=== PATIENT | male | born 1955 | race Caucasian/White ===

== ENCOUNTER → 2017-02-02 | Outpatient (CLI) | payer BC ==
--- NOTE | 2017-02-02 19:45 | MR ---
EXAMINATION TYPE: MR lumbar spine wo con DATE OF EXAM: 02/02/2017 7:37 PM COMPARISON: NONE HISTORY: low back pain also radiating down right leg Multiplanar, MultiSpin echo imaging of the lumbar spine was performed. L1-L2: Normal disc appearance without desiccation. No herniation, protrusion or disc bulging. No ca nal stenosis is present. Foramina are patent bilaterally. L2-L3: Mild Disc desiccation is noted. No herniation, protrusion or disc bulging. No canal stenosis is present. Foramina are patent bilaterally. L3-L4: Mild Disc desiccation is noted. No herniation, protrusion or disc bulging. No canal stenosis is present. Foramina are patent bilaterally. L4-L5: Severe disc desiccation. Degenerative endplate marrow change. Extruded disc herniation paracen trally and to the right measuring 2 cm in craniocaudal dimension. There is right foraminal encroachme nt and right lateral recess stenosis. There is edema of the exiting nerve root. No evidence for centr al stenosis. L5-S1: Severe disc desiccation noted. Mild circumferential disc bulge. No herniation protrusion or ce ntral stenosis. Degenerative endplate marrow change. Lumbar segments are intact. No paraspinal masses are identified. Conus medullaris has a normal appe arance. L1 vertebral body hemangioma small in size. Simple cyst right kidney. IMPRESSION: 1. Extruded disc herniation at L4-5 paracentral and to the right filling the right lateral recess and resulting in right foraminal encroachment with edema of the exiting nerve root.
== END | disposition home or self-care (01) ==
LOC: RADMRIMAIN 18:27
PROVIDERS: ATTEND Family Medicine
DX: M51.16 Intervertebral disc disorders with radiculopathy, lumbar region (principal); R60.0 Localized edema
CPT/HCPCS: 72148

== ENCOUNTER → 2018-03-29 | Outpatient (CLI) | payer BC ==
--- NOTE | 2018-03-29 11:31 | XR ---
EXAMINATION TYPE: XR chest 2V DATE OF EXAM: 03/29/2018 COMPARISON: NONE HISTORY: Annual physical exam TECHNIQUE: Frontal and lateral views of the chest are obtained. FINDINGS: There is no focal air space opacity, pleural effusion, or pneumothorax seen. The cardiac silhouette size is within normal limits. The osseous structures are intact. IMPRESSION: No acute cardiopulmonary process.
== END | disposition home or self-care (01) ==
LOC: RADXRYALE 10:55
PROVIDERS: ATTEND Family Medicine
DX: Z77.090 Contact with and (suspected) exposure to asbestos (principal)
CPT/HCPCS: 71046

== ENCOUNTER 2019-04-08 08:57 | Inpatient (IN) | payer BC ==
[2019-04-08] MEDS ORDERED: IPRATROPIUM-ALBUTEROL 3 ML NEB INHALATION STA ×3 (10:00→14:12)
[2019-04-08] MEDS ORDERED: SODIUM CHLORIDE 0.9% 1,000 ML IV STA (10:00)
[2019-04-08 10:16] LABS: Basophils # (A) 0.1 k/uL (0-0.2); Basophils % (A) 2 %; Eosinophils # (A) 0.8 k/uL (0-0.7); Eosinophils % (A) 10 %; HCT 46.2 % (39.0-53.0); HGB 15.2 gm/dL (13.0-17.5); Lymphocytes % (A) 13 %; MCH 30.8 pg (25.0-35.0); MCV 93.5 fL (80.0-100.0); Mean Platelet Volume 7.8; Monocytes # (A) 0.4 k/uL (0-1.0); Monocytes % (A) 4 %; Neutrophils # (A) 5.5 k/uL (1.3-7.7); Neutrophils % (A) 70 %; Platelet Count 246 k/uL (150-450); RBC 4.95 m/uL (4.30-5.90); RDW 12.4 % (11.5-15.5); WBC 7.8 k/uL (3.8-10.6)
[2019-04-08 10:23] LABS: ALT 20 U/L (4-49); AST 29 U/L (17-59); African American GFR (CKD) >90 (>60 ml/min/1.73 sqM); Albumin 4.3 g/dL (3.5-5.0); Alkaline Phosphatase 126 U/L (38-126); Anion Gap 9 mmol/L; Blood Urea Nitrogen 14 mg/dL (9-20); Calcium 9.5 mg/dL (8.4-10.2); Carbon Dioxide 24 mmol/L (22-30); Chloride 108 mmol/L (98-107); Creatine Kinase 58 U/L (55-170); Glucose 111 mg/dL (74-99); Magnesium 2.2 mg/dL (1.6-2.3); Non-African American GFR(CKD) >90 (>60 ml/min/1.73 sqM); Potassium 4.3 mmol/L (3.5-5.1); Sodium 141 mmol/L (137-145); Total Bilirubin 0.6 mg/dL (0.2-1.3); Total Protein 7.7 g/dL (6.3-8.2)
[2019-04-08 10:31] LABS: INR 0.9 (<1.2); Partial Thromboplastin Time 25.7 sec (22.0-30.0); Prothrombin Time 9.7 sec (9.0-12.0)
--- NOTE | 2019-04-08 10:34 | ED ---
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 He later got amoxicillin and got better he states he does have problems when he gets prednisone he develops range. He has second round of antibiotics and steroid shot which did not cause him any problem the antibiotics ended 6 days ago now the patient complains of shortness of breath again cough of yellow-green phlegm exertional dyspnea and no relief from his home inhaler. This started last evening especially getting bad. No overt chest pain no palpitations no nausea vomiting diarrhea no earache sore throat runny nose reported at this time. 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 MD Complaint: shortness of breath - Related Data Home Medications Medication Instructions Recorded Confirmed No Known Home Medications 04/25/14 04/27/14 Allergies Allergy/AdvReac Type Severity Reaction Status Date / Time No Known Allergies Allergy Verified 04/08/19 09:11 Review of Systems ROS Statement: Those systems with pertinent positive or pertinent negative responses have been documented in the HPI. ROS Other: All systems not noted in ROS Statement are negative. Past Medical History Past Medical History: No Reported History History of Any Multi-Drug Resistant Organisms: None Reported Additional Past Surgical History / Comment(s): vascetomy Past Psychological History: No Psychological Hx Reported Smoking Status: Never smoker Past Alcohol Use History: Rare Past Drug Use History: None Reported General Exam - General Exam Comments Initial Comments: This is a well-developed well-nourished awake alert oriented times 3 male. The patient did have a pulse ox of about 93-94 and room air went up to 97 on 2 L of oxygen. General appearance: anxious Head exam: Present: atraumatic, normocephalic, normal inspection Eye exam: Present: normal appearance, PERRL, EOMI. Absent: scleral icterus, conjunctival injection, periorbital swelling ENT exam: Present: normal exam, mucous membranes moist Neck exam: Present: normal inspection, full ROM, other (No stridor JVD or bruits). Absent: tenderness, meningismus, lymphadenopathy Respiratory exam: Present: wheezes, accessory muscle use, decreased breath sounds, other (She is wheezing some accessory muscle usage.). Absent: respiratory distress, rales, rhonchi, stridor Cardiovascular Exam: Present: regular rate, normal rhythm, normal heart sounds. Absent: systolic murmur, diastolic murmur, rubs, gallop, clicks GI/Abdominal exam: Present: soft, normal bowel sounds. Absent: distended, tenderness, guarding, rebound, rigid Extremities exam: Present: normal inspection, full ROM, normal capillary refill. Absent: tenderness, pedal edema, joint swelling, calf tenderness Back exam: Present: normal inspection Neurological exam: Present: alert, oriented X3, CN II-XII intact Psychiatric exam: Present: normal affect, normal mood Skin exam: Present: warm, dry, intact, normal color. Absent: rash Course Vital Signs 04/08/19 04/08/19 04/08/19 09:06 09:32 10:00 Temperature 98.2 F Pulse Rate 70 71 64 Respiratory 18 Rate Blood Pressure 142/94 129/88 O2 Sat by Pulse 96 93 L 97 Oximetry 04/08/19 04/08/19 04/08/19 10:10 10:17 10:18 Temperature Pulse Rate 65 65 66 Respiratory 18 Rate Blood Pressure 131/91 O2 Sat by Pulse 98 Oximetry 04/08/19 04/08/19 04/08/19 10:30 11:00 11:30 Temperature Pulse Rate 63 62 62 Respiratory Rate Blood Pressure 131/91 121/81 134/95 O2 Sat by Pulse 97 96 Oximetry 04/08/19 04/08/19 04/08/19 12:27 12:39 13:31 Temperature Pulse Rate 61 72 Respiratory 18 Rate Blood Pressure O2 Sat by Pulse Oximetry - Reevaluation(s) Reevaluation #1: 04/08/19 11:45 Patient states he is feeling improved at this time he does still have diffuse wheezing however. He will be getting a CT angiogram he does have elevated d-dimer. Reevaluation #2: 04/08/19 14:10 And continues to have diffuse wheezing and shortness of breath in spite of intensive therapy. Patient will be admitted CAT scan shows no evidence of PE however is evidence of a left upper lobe developing infiltrate. Medical Decision Making - Lab Data Result diagrams: 04/08/19 09:50 04/08/19 09:50 Lab Results 04/08/19 04/08/19 04/08/19 Range/Units 09:38 09:50 09:50 WBC 7.8 (3.8-10.6) k/uL RBC 4.95 (4.30-5.90) m/uL Hgb 15.2 (13.0-17.5) gm/dL Hct 46.2 (39.0-53.0) % MCV 93.5 (80.0-100.0) fL MCH 30.8 (25.0-35.0) pg MCHC 33.0 (31.0-37.0) g/dL RDW 12.4 (11.5-15.5) % Plt Count 246 (150-450) k/uL Neutrophils % 70 % Lymphocytes % 13 % Monocytes % 4 % Eosinophils % 10 % Basophils % 2 % Neutrophils # 5.5 (1.3-7.7) k/uL Lymphocytes # 1.0 (1.0-4.8) k/uL Monocytes # 0.4 (0-1.0) k/uL Eosinophils # 0.8 H (0-0.7) k/uL Basophils # 0.1 (0-0.2) k/uL PT (9.0-12.0) sec INR (<1.2) APTT (22.0-30.0) sec D-Dimer (<0.60) mg/L FEU Sodium 141 (137-145) mmol/L Potassium 4.3 (3.5-5.1) mmol/L Chloride 108 H (98-107) mmol/L Carbon Dioxide 24 (22-30) mmol/L Anion Gap 9 mmol/L BUN 14 (9-20) mg/dL Creatinine 0.69 (0.66-1.25) mg/dL Est GFR (CKD-EPI)AfAm >90 (>60 ml/min/1.73 sqM) Est GFR (CKD-EPI)NonAf >90 (>60 ml/min/1.73 sqM) Glucose 111 H (74-99) mg/dL Plasma Lactic Acid Albert 1.6 (0.7-2.0) mmol/L Calcium 9.5 (8.4-10.2) mg/dL Magnesium 2.2 (1.6-2.3) mg/dL Total Bilirubin 0.6 (0.2-1.3) mg/dL AST 29 (17-59) U/L ALT 20 (4-49) U/L Alkaline Phosphatase 126 (38-126) U/L Creatine Kinase 58 (55-170) U/L Troponin I (0.000-0.034) ng/mL NT-Pro-B Natriuret Pep pg/mL Total Protein 7.7 (6.3-8.2) g/dL Albumin 4.3 (3.5-5.0) g/dL 04/08/19 04/08/19 04/08/19 Range/Units 09:50 09:50 09:50 WBC (3.8-10.6) k/uL RBC (4.30-5.90) m/uL Hgb (13.0-17.5) gm/dL Hct (39.0-53.0) % MCV (80.0-100.0) fL MCH (25.0-35.0) pg MCHC (31.0-37.0) g/dL RDW (11.5-15.5) % Plt Count (150-450) k/uL Neutrophils % % Lymphocytes % % Monocytes % % Eosinophils % % Basophils % % Neutrophils # (1.3-7.7) k/uL Lymphocytes # (1.0-4.8) k/uL Monocytes # (0-1.0) k/uL Eosinophils # (0-0.7) k/uL Basophils # (0-0.2) k/uL PT 9.7 (9.0-12.0) sec INR 0.9 (<1.2) APTT 25.7 (22.0-30.0) sec D-Dimer 0.61 H (<0.60) mg/L FEU Sodium (137-145) mmol/L Potassium (3.5-5.1) mmol/L Chloride (98-107) mmol/L Carbon Dioxide (22-30) mmol/L Anion Gap mmol/L BUN (9-20) mg/dL Creatinine (0.66-1.25) mg/dL Est GFR (CKD-EPI)AfAm (>60 ml/min/1.73 sqM) Est GFR (CKD-EPI)NonAf (>60 ml/min/1.73 sqM) Glucose (74-99) mg/dL Plasma Lactic Acid Albert (0.7-2.0) mmol/L Calcium (8.4-10.2) mg/dL Magnesium (1.6-2.3) mg/dL Total Bilirubin (0.2-1.3) mg/dL AST (17-59) U/L ALT (4-49) U/L Alkaline Phosphatase (38-126) U/L Creatine Kinase (55-170) U/L Troponin I <0.012 (0.000-0.034) ng/mL NT-Pro-B Natriuret Pep 46 pg/mL Total Protein (6.3-8.2) g/dL Albumin (3.5-5.0) g/dL - EKG Data -: EKG Interpreted by Me EKG shows normal: sinus rhythm EKG Comments: Sinus rhythm a 62. Interval 166 QRS duration 90 QT since QTC of 14/[address]-T wave changes - Radiology Data Radiology results: report reviewed (Imaging reviewed evidence of developing left upper lobe infiltrate no PE seen.), image reviewed Critical Care Time Critical Care Time: Yes Critical Care Time: 31 minutes of critical care time which includes initial presentation with history physical labs x-rays multiple reevaluation the patient to responsive therapy discuss with the patient family regarding findings discussed with Dr. Alexis admission orders and documentation the above. Disposition Clinical Impression: Acute exacerbation of chronic obstructive pulmonary disease, Acute respiratory distress syndrome in adult, Left upper lobe pneumonia Disposition: ADMITTED IP TO THIS HOSP Condition: Fair Referrals: Frederick Crenshaw DO [Primary Care Provider] - 1-2 days
--- NOTE | 2019-04-08 10:45 | XR ---
EXAMINATION TYPE: XR chest 2V DATE OF EXAM: 04/08/2019 HISTORY: difficulty breathing. REFERENCE: Previous study dated 03/29/2018. FINDINGS: Lung volumes are prominent. The lungs are clear. Pleural spaces are clear. The heart is not enlarged. IMPRESSION: NO ACTIVE INTRATHORACIC DISEASE.
[2019-04-08 10:56] LABS: D-Dimer 0.61 mg/L FEU (<0.60)
--- NOTE | 2019-04-08 12:20 | CT ---
EXAMINATION TYPE: CT angio chest DATE OF EXAM: 04/08/2019 12:02 PM COMPARISON: None. HISTORY: Elevated d-dimer, exertional dyspnea. CT DLP: 430.1 mGycm Automated exposure control for dose reduction was used. CONTRAST: CTA scan of the thorax is performed with IV Contrast, patient injected with 100 mL of Isovue 370, pul monary embolism protocol. . FINDINGS:There is minimal dependent atelectasis at the right lung base. There is some minimal inflamm atory change in the left upper lobe. There is no significant axillary adenopathy. There is some adenopathy in the aortopulmonary window. T he largest measures 1.5 cm. There is no evidence of pulmonary embolus. The aorta is normal in caliber without evidence of dissection. There is no pleural or pericardial fluid. The heart is not enlarged. Visualized upper abdomen is unremarkable. There is mild hypertrophic spondylosis within the spine. IMPRESSION: 1. THIS EXAMINATION IS NEGATIVE FOR EMBOLUS. 2. PATCHY AIRSPACE DISEASE IN THE LEFT UPPER LOBE MAY REPRESENT EARLY PNEUMONIA.
[2019-04-08] MEDS ORDERED: LEVOFLOXACIN 500 MG TAB PO SCH (15:00)
--- NOTE | 2019-04-08 15:01 | P.CNPUL ---
History of Present Illness Consult date: 04/08/19 Reason for consult: dyspnea, cough History of present illness: 64-year-old male patient, a lifetime nonsmoker, no known chronic medical problems and comorbidities, no known chronic lung disease, a month was started around January to have symptoms of URI. He did home remedies which helped a bit and the symptoms occurred and February. By that time the patient was having increased scratchiness in his throat, cough and congestion and some increased shortness of breath. He was seen by nurse practitioner at his primary care physician's office who offered him systemic steroids which she did not take. Subsequently had some tooth infection for which she was offered amoxicillin by his dentist which she took and at a later stage was given another round of antibiotics by Dr. Frederick Huddleston which we think it's a cephalosporin. Unfortunately continued to be short of breath. He was having a congested cough unable to bring up much of sputum. Bronchospastic and wheezy. His lungs remained irritated nephrolithiasis and he came into the emergency department. All of the labs are within normal limits. Chest x-ray is within normal. CT an giogram is within normal. No significant pneumonia identified. No hemoptysis. No pleurisy. No fever. No chills. No altered mentation. No aspiration. No recurrent lung infections. No exposure to respiratory irritants or chemicals. 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 Review of Systems Constitutional: Denies chills, Denies fever Eyes: denies as per HPI, denies blurred vision, denies bulging eye, denies decreased vision, denies diplopia, denies discharge, denies dry eye, denies irritation, denies itching, denies pain, denies photophobia, denies loss of peripheral vision, denies loss of vision, denies tunnel vision/blind spots Ears: deny: decreased hearing, ear discharge, earache, tinnitus Ears, nose, mouth and throat: Denies headache, Denies sore throat Breasts: absent: as per HPI, gynecomastia Cardiovascular: Reports decreased exercise tolerance, Reports dyspnea on exertion Respiratory: Reports cough, Reports dyspnea, Reports wheezing Gastrointestinal: Denies abdominal pain, Denies diarrhea, Denies nausea, Denies vomiting Genitourinary: Reports as per HPI Musculoskeletal: Reports as per HPI Musculoskeletal: absent: ankle pain, ankle stiffness, ankle swelling, as per HPI, elbow pain, elbow stiffness, elbow swelling, foot pain, foot stiffness, f oot swelling, hand pain, hand stiffness, hand swelling, hip pain, hip stiffness, hip swelling, knee pain, knee stiffness, knee swelling, shoulder pain, shoulder stiffness, shoulder swelling, wrist pain, wrist stiffness, wrist swelling Integumentary: Reports as per HPI Neurological: Reports as per HPI Psychiatric: Reports as per HPI Endocrine: Reports as per HPI Hematologic/Lymphatic: Reports as per HPI Allergic/Immunologic: Reports as per HPI Past Medical History Past Medical History: No Reported History History of Any Multi-Drug Resistant Organisms: None Reported Additional Past Surgical History / Comment(s): vascetomy Past Psychological History: No Psychological Hx Reported Smoking Status: Never smoker Past Alcohol Use History: Rare Past Drug Use History: None Reported Medications and Allergies Home Medications Medication Instructions Recorded Confirmed Type Glucosam/Mango-Msm1/C/Wang/Bosw 1 tab PO QID 04/08/19 04/08/19 History [Ihztdqhfedl-Xjhxjgxsbpy-[facility] Tb] Magnesium(Unknown Dose) 1 tab PO BID 04/08/19 04/08/19 History Allergies Allergy/AdvReac Type Severity Reaction Status Date / Time prednisone AdvReac AGITATION Verified 04/08/19 14:24 Physical Exam Vitals: Vital Signs Temp Pulse Resp BP Pulse Ox 04/08/19 14:35 98.2 F 64 18 118/74 96 04/08/19 13:31 18 04/08/19 12:39 72 04/08/19 12:27 61 04/08/19 11:30 62 134/95 04/08/19 11:00 62 121/81 96 04/08/19 10:30 63 131/91 97 04/08/19 10:18 66 18 131/91 98 04/08/19 10:17 65 04/08/19 10:10 65 04/08/19 10:00 64 129/88 97 04/08/19 09:32 71 93 L 04/08/19 09:06 98.2 F 70 18 142/94 96 Intake and Output 04/07/19 04/08/19 04/08/19 22:59 06:59 14:59 Other: Weight 84.504 kg The patient appeared well nourished and normally developed. Vital signs as documented. Head exam is unremarkable. No scleral icterus or corneal arcus noted. Neck is without jugular venous distension, thyromegaly, or carotid b ruits. Carotid upstrokes are brisk bilaterally. Lungs are diminished breath sound bilaterally along with diffuse expiratory wheezes and prolongation of the exhalation phase of breathing. Cardiac exam reveals the PMI to be normally sized and situated. Rhythm is regular. First and second heart sounds normal. No murmurs, rubs or gallops. Abdominal exam reveals normal bowel sounds, no masses, no organomegaly and no aortic enlargement. Extremities are nonedematous and both femoral and pedal pulses are normal.Examination of the skin revealed no evidence of significant rashes, suspicious appearing nevi or other concerning lesions. Neurologically awake and alert and there is no focal neurological deficits. Results - Laboratory Findings CBC and BMP: 04/08/19 09:50 04/08/19 09:50 PT/INR, D-dimer PT 9.7 sec (9.0-12.0) 04/08/19 09:50 INR 0.9 (<1.2) 04/08/19 09:50 D-Dimer 0.61 mg/L FEU (<0.60) H 04/08/19 09:50 Abnormal lab findings: Abnormal Labs 04/08/19 04/08/19 04/08/19 09:50 09:50 09:50 Eosinophils # 0.8 H D-Dimer 0.61 H Chloride 108 H Glucose 111 H - Diagnostic Findings Chest x-ray: image reviewed CT scan - chest: image reviewed Assessment and Plan Plan: 1 acute/subacute bronchitis with wheezing, likely viral in nature. The patient has not responded to several rounds of antibiotics on outpatient basis. No known history of any chronic lung disease or disorder. CT angiogram was noted. Lung windows are within normal limits. Mediastinal lymph nodes shows some nonspecific lymphadenopathy in the mediastinum. No evidence of any pulmonary embolism. 2 shortness of breath secondary to above Plan DuoNeb nebulized treatments around the clock IV Solu Medrol 60 mg every 6 hours Influenza screen Sputum Gram stain and culture Anticipate full recovery within next 48 hours.
[2019-04-08] MEDS ORDERED: HYDROcodone/APAP 5-325MG 1 EACH TAB PO PRN (15:20)
[2019-04-08] MEDS ORDERED: ALPRAZolam 0.25 MG TAB PO PRN (15:20)
[2019-04-08] MEDS ORDERED: ACETAMINOPHEN TAB 500 MG TAB PO PRN (15:20)
[2019-04-08] MEDS: IPRATROPIUM-ALBUTEROL 3 ML NEB INHALATION SCH ×2 (15:38→21:05)
[2019-04-08] MEDS: SODIUM CHLORIDE 0.9% 1,000 ML IV SCH (16:38)
[2019-04-08] MEDS: methylPREDNISolone SOD SUCCI 125 MG/2 ML VIAL IV SCH (16:39)
[2019-04-08] MEDS: INSULIN ASPART (NovoLOG) 100 UNIT/ML VIAL SQ SCH ×2 (16:47→20:18)
[2019-04-08 17:09] LABS: Glucose,Whole Blood 140 mg/dL (75-99)
[2019-04-08] MEDS ORDERED: [UNRECOGNIZED DRUG - OTHER] PO SCH (18:00)
[2019-04-08 20:18] LABS: Glucose,Whole Blood 143 mg/dL (75-99)
[2019-04-08] MEDS: AZITHROMYCIN 500 MG in SODIUM CHLORIDE 0.9% 250 ML IVPB SCH (20:19)
[2019-04-08] MEDS: MAGNESIUM OXIDE 400 MG TAB PO SCH (20:19)
[2019-04-08] MEDS: HEPARIN SODIUM,PORCINE 5,000 UNIT/ML 1 ML VIAL SQ SCH (20:19)
[2019-04-08] MEDS: FORMOTEROL FUMARATE 20 MCG/2 ML NEBU INHALATION SCH (21:05)
[2019-04-08] MEDS: BUDESONIDE 1 MG/2 ML NEBU INHALATION SCH (21:05)
--- NOTE | 2019-04-08 22:57 | HP ---
HISTORY AND PHYSICAL DATE OF SERVICE: 04/08/2019. CHIEF COMPLAINT: Shortness of breath. HISTORY OF PRESENT ILLNESS: This 63-year-old gentleman with a past medical history of no significant medical illness being followed Dr. Crenshaw in the outpatient setting has been sick since last January. The patient apparently had an episode of cold and subsequently patient had incessant cough and sputum. Patient took at least two courses of antibiotics. Because of lack of improvement, patient presented to [facility] and was admitted for further evaluation and treatment. The patient had yellowish sputum at this time. A chest x-ray was done in the ER which I personally reviewed and showed some increased bronchovascular markings. A chest CTA was also done to rule out the possibility of pulmonary embolism, which showed patchy airspace disease in the left upper lobe indicating a pneumonia also. Dr. Murray's evaluation in progress also. The patient is being closely monitored. Patient had some exposure to asbestos. Otherwise, the patient also has history of hayfever also. There is no history of fever, rigors, chills at this time. The patient being followed by Dr. Crenshaw in the outpatient setting. PAST MEDICAL HISTORY: Past medical history of hayfever, history of vasectomy MEDICATIONS: Medications prior to admission include home medications: 1. Magnesium. 2. Glucosamine chondroitin. ALLERGIES: PREDNISONE. FAMILY HISTORY: No history of heart disease or strokes in the family. SOCIAL HISTORY: No history of smoking. No history of alcohol. 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 REVIEW OF SYSTEMS: ENT: No diminished vision. No diminished hearing. CARDIOVASCULAR as mentioned earlier. RESPIRATORY: As mentioned earlier. GI no nausea or vomiting. no dysuria. NERVOUS SYSTEM: No numbness or weakness. ALLERGY/IMMUNOLOGY: As mentioned earlier. HEMATOLOGY/ONCOLOGY: No history of anemia. ENDOCRINE: No history of diabetes or hypothyroidism. CONSTITUTIONAL: As mentioned earlier. DERMATOLOGY: Negative. RHEUMATOLOGY: Negative. PSYCHIATRIC: As mentioned earlier. PHYSICAL EXAMINATION: Alert and oriented times three. Pulse 59, blood pressure 124/72, respirations 16, temperature 98 degrees, pulse ox 97% on 2 L. HEENT: Conjunctivae normal. Oral mucosa moist. NECK is no jugular venous distention. No carotid bruit. No lymph node enlargement. Cardiovascular system: S1, S2 muffled. RESPIRATORY: Breath sounds diminished in the bases. Bilateral scattered rhonchi and crackles. Expiratory wheezing and crackles. ABDOMEN: Soft, nontender. No mass palpable. LEGS: No edema. No swelling. NERVOUS SYSTEM: Higher functions as mentioned earlier. Moves all 4 limbs. No focal motor or sensory deficits. LYMPHATICS: No lymph nodes palpable in the neck, axillae or groin. SKIN: No ulcer, no rash and no bleeding. JOINTS: No active deforming arthropathy. LAB: CBC within normal limits and D-dimer is 0.61. Otherwise glucose 140. Influenza negative. ASSESSMENT: 1. Acute left upper lobe pneumonia possibly bronchopneumonia for evaluation. 2. Possibly gram-negative, possibly community-acquired for evaluation. 3. Possible asthmatic bronchitis, acute exacerbation. 4. Rule out chronic obstructive pulmonary disease. 5. History of hayfever. 6. Elevated D-dimer with no evidence of pulmonary embolus. 7. Elevated random blood sugar. RECOMMENDATIONS AND DISCUSSION: In this 64-year-old gentleman who presented with multiple complex medical issues, we will monitor the patient closely, continue the current medications, management and symptomatic treatment. We will initiate broad-spectrum IV antibiotics and intensive bronchodilators, IV steroids, monitor blood sugars closely. DVT prophylaxis. Otherwise, I would also recommend close followup with Dr. Murray. The patient might need outpatient PFTs and possibly methacholine challenge also. Prognosis guarded because of multiple complex medical issues. Further recommendations to follow. I would also check mycoplasma and Legionella testing as well and further recommendations to follow. A copy of this dictation forwarded to Dr. Crenshaw who is the primary physician. See orders for details. MMODL / IJN: [id number] /
[2019-04-09] MEDS: methylPREDNISolone SOD SUCCI 125 MG/2 ML VIAL IV SCH ×5 (00:28→23:42)
[2019-04-09] MEDS: IPRATROPIUM-ALBUTEROL 3 ML NEB INHALATION SCH ×7 (01:09→23:54)
[2019-04-09] MEDS: SODIUM CHLORIDE 0.9% 1,000 ML IV SCH ×2 (01:22→17:17)
[2019-04-09 06:29] LABS: Basophils % (A) 0 %; Eosinophils % (A) 0 %; HCT 42.2 % (39.0-53.0); HGB 13.6 gm/dL (13.0-17.5); Lymphocytes # (A) 0.7 k/uL (1.0-4.8); Lymphocytes % (A) 9 %; MCH 30.6 pg (25.0-35.0); MCHC 32.1 g/dL (31.0-37.0); MCV 95.3 fL (80.0-100.0); Monocytes # (A) 0.1 k/uL (0-1.0); Monocytes % (A) 1 %; Neutrophils # (A) 7.5 k/uL (1.3-7.7); Neutrophils % (A) 90 %; Platelet Count 245 k/uL (150-450); RBC 4.43 m/uL (4.30-5.90); RDW 12.5 % (11.5-15.5); WBC 8.3 k/uL (3.8-10.6)
[2019-04-09 06:53] LABS: AST 27 U/L (17-59); African American GFR (CKD) >90 (>60 ml/min/1.73 sqM); Albumin 3.6 g/dL (3.5-5.0); Alkaline Phosphatase 108 U/L (38-126); Anion Gap 12 mmol/L; Blood Urea Nitrogen 18 mg/dL (9-20); Calcium 9.2 mg/dL (8.4-10.2); Carbon Dioxide 18 mmol/L (22-30); Chloride 109 mmol/L (98-107); Glucose 182 mg/dL (74-99); Non-African American GFR(CKD) >90 (>60 ml/min/1.73 sqM); Potassium 4.3 mmol/L (3.5-5.1); Sodium 139 mmol/L (137-145); Total Bilirubin 0.4 mg/dL (0.2-1.3); Total Protein 6.9 g/dL (6.3-8.2)
[2019-04-09 07:00] LABS: ALT 22 U/L (4-49)
[2019-04-09 07:08] LABS: Glucose,Whole Blood 185 mg/dL (75-99)
[2019-04-09] MEDS: MAGNESIUM OXIDE 400 MG TAB PO SCH ×2 (07:58→20:03)
[2019-04-09] MEDS: INSULIN ASPART (NovoLOG) 100 UNIT/ML VIAL SQ SCH ×4 (07:58→20:07)
[2019-04-09] MEDS: PANTOPRAZOLE 40 MG TABLET PO SCH (07:58)
[2019-04-09] MEDS: HEPARIN SODIUM,PORCINE 5,000 UNIT/ML 1 ML VIAL SQ SCH ×2 (07:58→20:03)
[2019-04-09] MEDS: BUDESONIDE 1 MG/2 ML NEBU INHALATION SCH ×2 (08:40→19:49)
[2019-04-09] MEDS: FORMOTEROL FUMARATE 20 MCG/2 ML NEBU INHALATION SCH ×2 (08:40→19:49)
[2019-04-09 11:43] LABS: Glucose,Whole Blood 200 mg/dL (75-99)
[2019-04-09] MEDS: MULTIVITAMINS, THERA 1 EACH TAB PO SCH (12:21)
--- NOTE | 2019-04-09 13:34 | P.PN ---
Subjective Progress Note Date: 04/09/19 64-year-old male patient is being seen in follow-up. Is feeling much better once improved compared to yesterday. There is significant improvement in his breathing and is less bronchospastic and wheezy. No chest pain. No significant cough or sputum production on today's evaluation. No fever or chills. He has responded nicely to the IV Solu-Medrol. He is also on bronchodilators [id number]. Objective - Vital Signs Vital signs: Vital Signs Temp 97.8 F 04/09/19 07:00 Pulse 102 H 04/09/19 12:05 Resp 16 04/09/19 07:00 BP 124/67 04/09/19 07:00 Pulse Ox 96 04/09/19 08:40 Intake & Output 04/08/19 04/09/19 04/09/19 18:59 06:59 18:59 Intake Total 1210 Balance 1210 Weight 84.504 kg Intake: Intake, IV Titration 970 Amount Azithromycin 500 mg In 250 Sodium Chloride 0.9% 250 ml @ 250 mls/hr IVPB Q24H ARI Rx#:[id number] Sodium Chloride 0.9% 1, 720 000 ml @ 80 mls/hr IV . [id number] ARI Rx#:[id number] Oral 240 Other: Voiding Method Toilet # Voids 2 - Exam On examThe patient appeared well nourished and normally developed. Vital signs as documented. Head exam is unremarkable. No scleral icterus or corneal arcus noted. Neck is without jugular venous distension, thyromegaly, or carotid bruits. Carotid upstrokes are brisk bilaterally. Lungs are clear to auscultation and percussion. Cardiac exam reveals the PMI to be normally sized and situated. Rhythm is regular. First and second heart sounds normal. No murmurs, rubs or gallops. Abdominal exam reveals normal bowel sounds, no masses, no organomegaly and no aortic enlargement. Extremities are nonedematous and both femoral and pedal pulses are normal. - Labs CBC & Chem 7: 04/09/19 05:43 04/09/19 05:43 Labs: Abnormal Lab Results - Last 24 Hours (Table) 04/08/19 04/08/19 04/09/19 Range/Units 16:47 20:17 05:43 Lymphocytes # (1.0-4.8) k/uL Chloride 109 H (98-107) mmol/L Carbon Dioxide 18 L (22-30) mmol/L Glucose 182 H (74-99) mg/dL POC Glucose (mg/dL) 140 H 143 H (75-99) mg/dL 04/09/19 04/09/19 04/09/19 Range/Units 05:43 06:46 11:39 Lymphocytes # 0.7 L (1.0-4.8) k/uL Chloride (98-107) mmol/L Carbon Dioxide (22-30) mmol/L Glucose (74-99) mg/dL POC Glucose (mg/dL) 185 H 200 H (75-99) mg/dL Assessment and Plan Plan: 1 acute/subacute bronchitis with wheezing, likely viral in nature. The patient has not responded to several rounds of antibiotics on outpatient basis. No known history of any chronic lung disease or disorder. CT angiogram was noted. Lung windows are within normal limits. Mediastinal lymph nodes shows some nonspecific lymphadenopathy in the mediastinum. No evidence of any pulmonary embolism. On today's evaluation of 04/09/2019, the patient is much improved and he has res ponded very nicely to the treatment. Influenza screen came back negative. 2 shortness of breath secondary to above Plan DuoNeb nebulized treatments around the clock IV Solu Medrol 60 mg every 6 hours Influenza screen is negative Sputum Gram stain and culture Anticipate full recovery and possible discharge in a.m. on a prednisone burst taper
[2019-04-09 16:55] LABS: Glucose,Whole Blood 158 mg/dL (75-99)
[2019-04-09 18:02] LABS: Appearance,Urine Clear (Clear); Bilirubin,Urine Negative (Negative); Blood,Urine Negative (Negative); Color,Urine Light Yellow; Glucose,Urine (UA) 1+ (Negative); Ketones,Urine Negative (Negative); Leukocyte Esterase,Urine Negative (Negative); Nitrite,Urine Negative (Negative); Protein,Urine Negative (Negative); Specific Gravity,Urine 1.006 (1.001-1.035); Urobilinogen,Urine <2.0 mg/dL (<2.0)
[2019-04-09] MEDS: AZITHROMYCIN 500 MG in SODIUM CHLORIDE 0.9% 250 ML IVPB SCH (19:26)
[2019-04-09 20:07] LABS: Glucose,Whole Blood 246 mg/dL (75-99)
--- NOTE | 2019-04-09 23:44 | PN ---
PROGRESS NOTE DATE OF SERVICE: 04/09/2019 This 64-year-old gentleman admitted with significant shortness of breath possibly with acute left upper lobe pneumonia with bronchopneumonia. The patient being closely monitored at this time. The patient is on intensive bronchodilators and steroids also. Blood sugars mildly elevated. Dr. Murray is following the patient closely. A chest CT was also done to rule out the possibility of pulmonary embolism. No chest pain. No palpitations. No fever. EXAM: Alert and oriented times three. Pulse 94. Blood pressure 130/69, respirations 16, temperature 98.4, pulse ox 94% on room air. HEENT: Conjunctivae normal. NECK: No JVD. Cardiovascular is S1, S2 muffled. No murmurs. RESPIRATORY: Breath sounds diminished in the bases. Examination of the chest bilateral scattered rhonchi. No crackles. ABDOMEN: Soft, nontender. No mass palpable. LEGS are no edema. No swelling. CENTRAL NERVOUS SYSTEM: No focal deficits. ASSESSMENT: 1. Acute left upper lobe pneumonia possibly bronchopneumonia for evaluation. 2. Possibly gram-negative possibly community-acquired for community acquired pneumonia. 3. Possible asthmatic bronchitis with reactive bronchospasm acute exacerbation. 4. Rule out chronic obstructive pulmonary disease. 5. History of hay fever. 6. Acute D-dimer with no evidence of pulmonary embolism. 7. Elevated random blood sugar, possibly secondary to steroids. 8. FULL CODE. RECOMMENDATIONS AND DISCUSSION: I recommend to continue current medications, management and symptomatic treatment. Continue with IV steroids. Continue with empiric antibiotics. Closely follow with Pulmonary. Repeat labs in the morning. Otherwise, continue to monitor. UA with micro and I would also recommend a sedimentation rate and CRP also. Further recommendations to follow. MMODL / IJN: [id number] /
[2019-04-10 02:59] LABS: Mycoplasma IgG Antibody (EIA) 1.24 INDEX (<=0.90); Mycoplasma IgM Antibody 0.2 INDEX (<=0.90)
[2019-04-10] MEDS: IPRATROPIUM-ALBUTEROL 3 ML NEB INHALATION SCH ×3 (03:42→10:57)
[2019-04-10] MEDS: SODIUM CHLORIDE 0.9% 1,000 ML IV SCH (04:00)
[2019-04-10] MEDS: methylPREDNISolone SOD SUCCI 125 MG/2 ML VIAL IV SCH ×2 (05:42→12:24)
[2019-04-10] MEDS: BUDESONIDE 1 MG/2 ML NEBU INHALATION SCH (06:47)
[2019-04-10] MEDS: FORMOTEROL FUMARATE 20 MCG/2 ML NEBU INHALATION SCH (06:47)
[2019-04-10 06:51] VITALS: PULSE 88
[2019-04-10 07:01] LABS: Glucose,Whole Blood 147 mg/dL (75-99)
[2019-04-10] MEDS: INSULIN ASPART (NovoLOG) 100 UNIT/ML VIAL SQ SCH ×2 (07:41→12:24)
[2019-04-10] MEDS: MULTIVITAMINS, THERA 1 EACH TAB PO SCH (07:42)
[2019-04-10] MEDS: HEPARIN SODIUM,PORCINE 5,000 UNIT/ML 1 ML VIAL SQ SCH (07:42)
[2019-04-10] MEDS: PANTOPRAZOLE 40 MG TABLET PO SCH (07:42)
[2019-04-10] MEDS: MAGNESIUM OXIDE 400 MG TAB PO SCH (07:42)
[2019-04-10 07:58] VITALS: BP 106/57; RESP 18; TEMP 97.9
[2019-04-10 09:08] LABS: Basophils % (A) 0 %; Eosinophils % (A) 0 %; HCT 40.8 % (39.0-53.0); HGB 12.8 gm/dL (13.0-17.5); Lymphocytes # (A) 0.6 k/uL (1.0-4.8); Lymphocytes % (A) 4 %; MCHC 31.2 g/dL (31.0-37.0); MCV 96.2 fL (80.0-100.0); Mean Platelet Volume 8.3; Monocytes # (A) 0.3 k/uL (0-1.0); Monocytes % (A) 2 %; Neutrophils # (A) 13.7 k/uL (1.3-7.7); Neutrophils % (A) 94 %; Platelet Count 245 k/uL (150-450); RBC 4.25 m/uL (4.30-5.90); RDW 12.8 % (11.5-15.5); WBC 14.7 k/uL (3.8-10.6)
--- NOTE | 2019-04-10 11:35 | P.PN ---
Subjective Progress Note Date: 04/10/19 Principal diagnosis: Acute/subacute bronchitis with bronchospasm 64-year-old male patient is being seen in follow-up. Is feeling much better once improved compared to yesterday. There is significant improvement in his breathing and is less bronchospastic and wheezy. No chest pain. No significant cough or sputum production on today's evaluation. No fever or chills. He has responded nicely to the IV Solu-Medrol. He is also on bronchodilators [id number]. On 04/10/2019 patient seen in follow-up on medical floor. He is off the supplemental oxygen, pulse oximetry 95%, afebrile, hemodynamically stable, he states his breathing has improved, he has been tolerating ambulation, sounds still reveal some coarse sounds, but good air entry bilaterally, with minimal wheezing, his been treated with Rocephin and Zithromax, his been afebrile, IV steroids, breathing treatments, he is hoping to be able to go home today. Objective - Vital Signs Vital signs: Vital Signs Temp 97.9 F 04/10/19 07:00 Pulse 88 04/10/19 07:09 Resp 18 04/10/19 07:00 BP 106/57 04/10/19 07:00 Pulse Ox 98 04/10/19 07:00 Intake & Output 04/09/19 04/10/19 04/10/19 18:59 06:59 18:59 Intake Total 370 296 Balance 370 296 Intake: Oral 370 296 Other: Voiding Method Toilet Toilet # Voids 3 1 - Exam GENERAL EXAM: Alert, very pleasant, 64-year-old white male, room air pulse ox of 95% comfortable in no apparent distress. HEAD: Normocephalic/atraumatic. EYES: Normal reaction of pupils, equal size. Conjunctiva pink, sclera white. NOSE: Clear with pink turbinates. THROAT: No erythema or exudates. NECK: No masses, no JVD, no thyroid enlargement, no adenopathy. CHEST: No chest wall deformity. Symmetrical expansion. LUNGS: Equal air entry with coarse breath sounds, minimal wheeze, rhonchi, no dullness. CVS: Regular rate and rhythm, normal S1 and S2, no gallops, no murmurs, no rubs ABDOMEN: Soft, nontender. No hepatosplenomegaly, normal bowel sounds, no guarding or rigidity. EXTREMITIES: No clubbing, no edema, no cyanosis, 2+ pulses and upper and lower extremities. MUSCULOSKELETAL: Muscle strength and tone normal. SPINE: No scoliosis or deformity SKIN: No rashes CENTRAL NERVOUS SYSTEM: Alert and oriented -3. No focal deficits, tone is normal in all 4 extremities. PSYCHIATRIC: Alert and oriented -3. Appropriate affect. Intact judgment and insight. - Labs CBC & Chem 7: 04/10/19 07:36 04/09/19 05:43 Labs: Abnormal Lab Results - Last 24 Hours (Table) 04/08/19 04/09/19 04/09/19 Range/Units 18:29 11:39 16:54 WBC (3.8-10.6) k/uL RBC (4.30-5.90) m/uL Hgb (13.0-17.5) gm/dL Neutrophils # (1.3-7.7) k/uL Lymphocytes # (1.0-4.8) k/uL POC Glucose (mg/dL) 200 H 158 H (75-99) mg/dL Urine Glucose (UA) (Negative) Mycoplasma pneumon IgG 1.24 H (<=0.90) INDEX 04/09/19 04/09/19 04/10/19 Range/Units 17:30 20:05 07:00 WBC (3.8-10.6) k/uL RBC (4.30-5.90) m/uL Hgb (13.0-17.5) gm/dL Neutrophils # (1.3-7.7) k/uL Lymphocytes # (1.0-4.8) k/uL POC Glucose (mg/dL) 246 H 147 H (75-99) mg/dL Urine Glucose (UA) 1+ H (Negative) Mycoplasma pneumon IgG (<=0.90) INDEX 04/10/19 Range/Units 07:36 WBC 14.7 H (3.8-10.6) k/uL RBC 4.25 L (4.30-5.90) m/uL Hgb 12.8 L (13.0-17.5) gm/dL Neutrophils # 13.7 H (1.3-7.7) k/uL Lymphocytes # 0.6 L (1.0-4.8) k/uL POC Glucose (mg/dL) (75-99) mg/dL Urine Glucose (UA) (Negative) Mycoplasma pneumon IgG (<=0.90) INDEX Microbiology - Last 24 Hours (Table) 04/09/19 11:50 Gram Stain - Preliminary Sputum Sputum Culture - Preliminary 04/08/19 18:29 Blood Culture - Preliminary Blood No Growth after 24 hours Assessment and Plan Plan: Assessment #1. Acute/subacute bronchitis with wheezing likely viral in nature, she has had several rounds of antibiotics on an outpatient basis since January. No known history of any chronic lung disease or disorder, CT angiogram was noted, lung windows are within normal limits, mediastinal lymph nodes show some nonspecific lymphadenopathy in the mediastinum, no evidence of any pulmonary embolism #2. Shortness of breath secondary to the above improved Plan: Patient is doing well, breathing much easier, tolerating ambulation, he is off supplemental oxygen, no fever or chills, his been treated with IV steroids Zithromax and Rocephin, from pulmonary perspective he stable for discharge home today. Patient can go home on outpatient course of Zithromax, prednisone taper, and a rescue inhaler follow-up with Dr. Murray in the office in 10 days I performed a history & physical examination of the patient and discussed their management with my nurse practitioner, Connie Flores. I reviewed the nurse practitioner's note and agree with the documented findings and plan of care. Lung sounds are positive for diffuse wheezes throughout the lung swan. The findings and the impression was discussed with the patient. I attest to the documentation by the nurse practitioner. Time with Patient: Less than 30
[2019-04-10 11:40] LABS: Glucose,Whole Blood 202 mg/dL (75-99)
[2019-04-10] MEDS ORDERED: AZITHROMYCIN 500 MG TAB PO SCH (19:00)
--- NOTE | 2019-04-10 19:24 | DS ---
DISCHARGE SUMMARY DATE OF SERVICE: 04/10/2019 FINAL DIAGNOSES: 1. Acute left upper lobe pneumonia possibly bronchopneumonia, improving. 2. Possibly gram-negative community-acquired. 3. Possible asthmatic bronchitis, reactive bronchospasm, acute exacerbation. 4. Rule out chronic obstructive pulmonary disease. 5. History of hayfever. 6. Slightly elevated D-dimer with no evidence of pulmonary embolism. 7. Elevated random blood sugar, possibly secondary to steroids. 8. FULL CODE. DISCHARGE DISPOSITION: The patient being discharged in stable condition with guarded prognosis. Discharge cleared by Pulmonary, Dr. Bailey. HISTORY OF PRESENT ILLNESS: This 64-year-old gentleman with a past medical history of multiple medical problems admitted with acute left lower lobe pneumonia possibly bronchopneumonia, treated with bronchodilators and steroids and antibiotics, improved significantly. The patient was having similar symptoms for the last several months. Recommended to continue antibiotics and bronchodilators at home and follow up in the outpatient setting. The patient might need a pulmonary function test and possibly a methacholine challenge test as an outpatient to delineate the exact underlying pulmonary process. On exam vitals are stable. Cardio system: S1, S2 normal. Respirations: Few scattered rhonchi. Abdomen soft, nontender. Nervous system: No focal deficits. DISCHARGE ADVICE AND MEDICATIONS: 1. Diet is cardiac diet. 2. Activity limited until followup. 3. Follow up with Dr. Crenshaw in 2-3 days. 4. Follow up with Dr. Murray as advised, outpatient followup. DISCHARGE MEDICATIONS: 1. Glucosamine as before. 2. Ceftin 500 mg p.o. b.i.d. for 4 days. 3. Magnesium oxide 400 mg p.o. b.i.d. 4. Multivitamins 1 p.o. daily. 5. Prednisone taper 40 mg daily for 3 days, 30 for 3 days, 20 for 3 days, 10 for 3 days and then stop. 6. Symbicort 160/4.5 one puff b.i.d. 7. Albuterol 1-2 puffs q.i.d. and p.r.n. 8. Zithromax 500 mg p.o. daily for 5 days. Once again, the patient will be discharged in stable condition with guarded prognosis. MMODL / IJN: [id number] /
--- NOTE | 2019-04-14 12:22 | CDI ---
Documentation Clarification Form Date: 04/14/19 From: Era Mcfadden CCS Phone: If you have a question about this query, please contact Jodie Galan, Boat Garnisher at [phone] between 8am and 5pm. Admit Date: 04/08/19 Discharge Date: 04/10/19 Patient Name: Jayson Ochoa Visit Number: [id number] ATTENTION: The Clinical Documentation Specialists (CDI) and [facility] Coding Staff appreciate your assistance in clarifying documentation. Please respond to the clarification below the line at the bottom and electronically sign. The CDI & [facility] Coding staff will review the response and follow-up if needed. Please note: Queries are made part of the Legal Health Record. If you have any questions, please contact the author of this message via ITS. Dear Dr. Alexis, The diagnosis acute respiratory distress was documented in the ED notes, but is not noted in subsequent documentation. History/Risk Factors: PNA, COPD w/ Exac, Acute bronchitis Clinical Indicators: Wheezes, accessory muscle use, decreased breath sounds, breath sounds diminished in the bases. Lungs are diminished breath sound bilaterally along with diffuse expiratory wheezes and prolongation of the exhalation phase of breathing. Vitals: BP 129/88, RR 18, O2 Sat 96/93, MN 70/71 Treatment: Oxygen nasal cannula 2 lpm Please clarify if the acute respiratory distress was: Present/active this admission Treated and resolved this admission Ruled out Other, please specify Clinically unable to determine Present/active this admission MTDD
--- NOTE | 2019-06-08 16:12 | CDI ---
Documentation Clarification Form Date: 06/08/19 From: Era Mcfadden CCS Phone: If you have a question about this query, please contact Jodie Galan, Industrial Engineering at [phone] between 8am and 5pm. Admit Date: 04/08/19 Discharge Date:04/10/19 Patient Name: Miguel Ochoa Visit Number: [id number] ATTENTION: The Clinical Documentation Specialists (CDI) and [facility] Coding Staff appreciate your assistance in clarifying documentation. Please respond to the clarification below the line at the bottom and electronically sign. The CDI & [facility] Coding staff will review the response and follow-up if needed. Please note: Queries are made part of the Legal Health Record. If you have any questions, please contact the author of this message via ITS. Dear Dr. Alexis, This patient is admitted with acute respiratory distress and PNA. History/Risk Factors: PNA, COPD w/ Exac, Acute bronchitis Clinical Indicators: Acute respiratory distress, Continues to have wheezing and shortness of breath in spite of intensive therapy Vital Signs: BP 129/88, RR 18, MN 64 Pulse Ox: 96, 93, 97 Treatment: O2 Nasal Cannula 2 lpm, Hand nebulizer Oxygen: 2 lpm Medications: Pulmicort 1 mg inhalation RT-BID, Perforomist 20 mcg Inhalation RT- BID In order to accurately reflect the severity of condition, please indicate if the above clinical findings and treatment signify a respiratory condition, such as: Acute Respiratory Distress Respiratory Failure, please specify -Acute -Acute on Chronic -Chronic Further specify (if known): -With hypercapnia? -With hypoxia? Other, please specify Unable to determine Acute Respiratory Distress MTDD
--- NOTE | 2019-06-08 16:31 | CDI ---
Documentation Clarification Form Date: 06/08/19 From: Era Mcfadden CCS Phone: If you have a question about this query, please contact Jodie Galan, Transporter Driver at [phone] between 8am and 5pm. Admit Date: 04/08/19 Discharge Date:04/10/19 Patient Name: Miguel Ochoa Visit Number: [id number] ATTENTION: The Clinical Documentation Specialists (CDI) and [facility] Coding Staff appreciate your assistance in clarifying documentation. Please respond to the clarification below the line at the bottom and electronically sign. The CDI & [facility] Coding staff will review the response and follow-up if needed. Please note: Queries are made part of the Legal Health Record. If you have any questions, please contact the author of this message via ITS. Dear Dr. Alexis, Pneumonia was documented in ED, H&P, PN, DS. History/Risk Factors: COPD w/ Exac, Acute bronchitis Clinical Indicators: Respiratory distress Lab: Positive Mycoplasma pneumoniae IgG Antibody Microbiology: Few polymorphonuclear leukocytes, rare epithelial cells, rare gram positive cocci WBC: 7.8, 8.3 CT: PATCHY AIRSPACE DISEASE IN THE LEFT UPPER LOBE MAY REPRESENT EARLY PNEUMONIA. Lung/Breathing assessment: He was having a congested cough unable to bring up much of sputum.Bronchospastic and wheezy.His lungs remained irritated and he came into the emergency department. Treatment: O2 2 lpm, Hand nebulizer Antibiotics: Zithromax 500 mg IVPB Q24H, Rocephin 1 gm IVPB Q24H In order to capture the severity of condition, please clarify if the condition signifies and you are treating for: Bacterial Pneumonia, specify causal organism (if known) Gram Negative Pneumonia Gram positive Mycoplasma Other bacteria (please specify) Viral Pneumonia, specify casual organism (if known) Other, please specify Unable to determine Bacterial Pneumonia, specify causal organism (if known) possibly Gram Negative Pneumonia MTDD
== END 2019-04-10 14:27 | disposition home or self-care (01) | DRG 178 ==
LOC: EC 08:57 → 4SSUR 14:15
PROVIDERS: ADMIT Hospitalist; ATTEND Hospitalist
DX: J15.6 Pneumonia due to other Gram-negative bacteria (principal); J44.0 Chronic obstructive pulmonary disease with (acute) lower respiratory infection; J44.1 Chronic obstructive pulmonary disease with (acute) exacerbation; J20.9 Acute bronchitis, unspecified; R06.03 Acute respiratory distress; J30.1 Allergic rhinitis due to pollen; R79.89 Other specified abnormal findings of blood chemistry; R59.1 Generalized enlarged lymph nodes; R73.9 Hyperglycemia, unspecified; T38.0X5A Adverse effect of glucocorticoids and synthetic analogues, initial encounter; Z79.899 Other long term (current) drug therapy; Z77.090 Contact with and (suspected) exposure to asbestos; Z98.52 Vasectomy status; Z88.8 Allergy status to other drugs, medicaments and biological substances; Z86.19 Personal history of other infectious and parasitic diseases
CPT/HCPCS: 36415; 71046; 71275; 80053; 81003; 82550; 83605; 83735; 83880; 84484; 85025; 85379; 85610; 85652; 85730; 86140; 86738; 87040; 87070; 87205; 87502; 93005; 94640; 94760; 96360; 96361; 99291

== ENCOUNTER → 2019-04-27 | Outpatient (CLI) | payer BC ==
[2019-04-27 15:51] LABS: Basophils # (A) 0.1 k/uL (0-0.2); Basophils % (A) 1 %; Eosinophils # (A) 0.5 k/uL (0-0.7); Eosinophils % (A) 6 %; HCT 45.1 % (39.0-53.0); HGB 14.8 gm/dL (13.0-17.5); Lymphocytes # (A) 1.5 k/uL (1.0-4.8); Lymphocytes % (A) 19 %; MCH 31.1 pg (25.0-35.0); MCHC 32.9 g/dL (31.0-37.0); MCV 94.3 fL (80.0-100.0); Mean Platelet Volume 7.4; Monocytes # (A) 0.6 k/uL (0-1.0); Monocytes % (A) 8 %; Neutrophils # (A) 5.1 k/uL (1.3-7.7); Neutrophils % (A) 64 %; Platelet Count 246 k/uL (150-450); RBC 4.78 m/uL (4.30-5.90); RDW 12.8 % (11.5-15.5); WBC 7.9 k/uL (3.8-10.6)
[2019-04-27 16:38] LABS: Total Eosinophil Count 458 #EOS/uL (150-300)
[2019-04-27 20:52] LABS: Cat Epith & Dander IgE 6.25 kU/L
[2019-04-27 20:53] LABS: Alternaria alternata IgE <0.10 kU/L; Aspergillus fumagatus IgE <0.10 kU/L; Maple (Box Elder) IgE 1.05 kU/L
[2019-04-27 20:54] LABS: Cladosporian herbarum IgE <0.10 kU/L; Cockroach IgE <0.10 kU/L
[2019-04-27 20:56] LABS: Elm IgE 2.04 kU/L; Oak IgE 0.27 kU/L; Ragweed,Common IgE <0.10 kU/L
[2019-04-27 21:15] LABS: Birch IgE 0.46 kU/L
== END | disposition home or self-care (01) ==
LOC: LABWHC1 14:59
PROVIDERS: ATTEND Internal Medicine
DX: J45.50 Severe persistent asthma, uncomplicated (principal)
CPT/HCPCS: 36415; 82785; 85008; 85025; 86003

== ENCOUNTER → 2020-04-16 | Outpatient (CLI) | payer BC ==
--- NOTE | 2020-04-16 12:09 | XR ---
EXAMINATION TYPE: XR foot complete RT DATE OF EXAM: 04/16/2020 CLINICAL HISTORY: Pain after injury worse in the first toe. TECHNIQUE: Frontal, lateral, and oblique images of the right foot are obtained. COMPARISON: None FINDINGS: There is acute oblique and only displaced intra-articular fracture through the lateral bas e of the first distal phalanx. Mild to moderate focal associated soft tissue swelling. The joint spac es in the right foot appear within normal limits. Lateral view suboptimal due to osseous overlap at t his level. IMPRESSION: There is acute oblique minimally displaced intra-articular fracture lateral base of firs t distal phalanx. (Initial encounter closed type posttraumatic fracture)
== END | disposition home or self-care (01) ==
LOC: RADXRYALE 11:38
PROVIDERS: ATTEND Family Medicine
DX: S92.911A Unspecified fracture of right toe(s), initial encounter for closed fracture (principal)

== ENCOUNTER → 2021-08-12 | Outpatient (CLI) | payer BC ==
--- NOTE | 2021-08-12 15:44 | XR ---
EXAMINATION TYPE: XR tibia fibula 2 views LT DATE OF EXAM: 08/12/2021 Comparison: None Clinical History: 66-year-old male [id number], [id number] OPEN WOUND/PAIN LT LEG Findings: Focal soft tissue protuberance anterior mid pretibial region no retained radiopaque foreign body is s een here. No underlying periostitis or osteolysis. No acute fracture. Suspect some faint heterotopic ossification within the medial posterior soft tissues of the mid leg. Impression: Focal anterior soft tissue swelling/protuberance mid-pretibial region. No underlying acute osseous ab normality seen.
== END | disposition home or self-care (01) ==
LOC: RADXRYALE 10:06
PROVIDERS: ATTEND Physician Assistant Medical
DX: M79.89 Other specified soft tissue disorders (principal)

== ENCOUNTER → 2021-11-05 | Outpatient (CLI) | payer BC ==
--- NOTE | 2021-11-05 11:02 | XR ---
EXAMINATION TYPE: XR chest 2V DATE OF EXAM: 11/05/2021 COMPARISON: 04/08/2019 HISTORY: Shortness of breath TECHNIQUE: Frontal and lateral views of the chest are obtained. FINDINGS: Scattered senescent parenchymal changes noted. Hyperinflation compatible with COPD. No evidence for infiltrate. No evidence for atelectasis. Heart size is stable. Mediastinal structures are stable and grossly unremarkable. No evidence for hilar prominence. Degenerative changes dorsal spine. IMPRESSION: 1. No evidence for acute pulmonary disease.
== END | disposition home or self-care (01) ==
LOC: RADXRYALE 10:30
PROVIDERS: ATTEND Urology
DX: C61 Malignant neoplasm of prostate (principal)
CPT/HCPCS: 71046

== ENCOUNTER → 2022-02-03 | Outpatient (CLI) | payer BC, MEDICARE, OTHER ==
[2022-02-03 16:26] LABS: African American GFR (CKD) >90 (>60 ml/min/1.73 sqM); Blood Urea Nitrogen 22 mg/dL (9-20); Non-African American GFR(CKD) 84 (>60 ml/min/1.73 sqM)
--- NOTE | 2022-02-03 22:17 | CT ---
EXAMINATION TYPE: CT abdomen pelvis wo/w con CT DLP: 1270.9 mGycm, Automated exposure control for dose reduction was used. DATE OF EXAM: 02/03/2022 4:51 PM COMPARISON: None CLINICAL INDICATION:Male, 66 years old with history of C61 MALIGNANT NEOPLASM OF PROSTATE; h/o prosta te CA, f/u TECHNIQUE: Axial CT of the abdomen and pelvis. Sagittal and coronal reformats were created on a [employer] workstation. Contrast used:100 mL of Isovue 300 with IV Contrast, Oral contrast used: with Oral Contrast FINDINGS: LOWER CHEST: Unremarkable ABDOMEN LIVER: Unremarkable GALLBLADDER AND BILE DUCTS: Unremarkable. PANCREAS: Unremarkable. SPLEEN: Unremarkable. ADRENAL GLANDS: e left adrenal gland nodule consistent with benign lipid rich adrenal adenoma measuri ng up to 2.2 cm. KIDNEYS AND URETERS: No evidence of hydronephrosis or renal calculus. Right renal cyst. PELVIS BLADDER: Unremarkable REPRODUCTIVE: Unremarkable. ABDOMEN & PELVIS STOMACH AND BOWEL: No evidence of bowel obstruction. Scattered colonic diverticula present. PERITONEUM: No evidence of pneumoperitoneum or free fluid. VASCULATURE: No evidence of aortic aneurysm. MUSCULOSKELETAL: No acute osseous abnormalitiesr. There is a small 4 mm sclerotic focus in the right iliac bone. LYMPH NODES: No gross evidence for lymphadenopathy. SOFT TISSUE/ABDOMINAL WALL: Unremarkable IMPRESSION: No evidence of lymphadenopathy. There is a small 4 mm area of sclerosis which is very subtle in the r ight iliac bone which could simply represent a benign bone island however given history of prostate c ancer attention on follow-up imaging is recommended. Consider comparisons with priors at outside [facility] itutions. No other suspicious osseous lesion identified.
== END | disposition home or self-care (01) ==
LOC: RADCTMAIN 14:22
PROVIDERS: ATTEND Urology
DX: C61 Malignant neoplasm of prostate (principal); M89.8X8 Other specified disorders of bone, other site
CPT/HCPCS: 82565; 84520; 74178; 36415; Q9967 ×2

== ENCOUNTER → 2022-02-26 | Outpatient (CLI) | payer BC, OTHER ==
--- NOTE | 2022-02-26 14:43 | NM ---
EXAMINATION TYPE: NM bone scan whole body DATE OF EXAM: 02/26/2022 COMPARISON: NONE HISTORY: C61 M with prostate cancer Delayed whole-body scanning was performed following the injection of 20.3 mCi Tc 99m MDP. Images acq uired 3 hours post injection. FINDINGS: No intense radiotracer accumulation to suggest metastatic disease. Degenerative uptake about the shou lders, sternoclavicular joints, cervical thoracic junction, mid thoracic spine and lower lumbar spine as well as the bilateral wrists and hands and bilateral knees. IMPRESSION: No intense radiotracer accumulation to suggest metastatic disease.
== END | disposition home or self-care (01) ==
LOC: RADNMMAIN 10:11
PROVIDERS: ATTEND Urology
DX: C61 Malignant neoplasm of prostate (principal)
CPT/HCPCS: 78306; A9503